=== PATIENT | male | born 1995 | race Caucasian/White ===

== ENCOUNTER 2018-12-27 13:38 | Emergency (ER) | payer OTHER ==
[2018-12-27] MEDS ORDERED: Bacitracin Oint 1 GM U/D Packet TOP ONE (15:28)
[2018-12-27] MEDS ORDERED: Lidocaine 1% 30 ML SDV INJECT ONE (15:28)
--- NOTE | 2018-12-27 16:48 | EDM.PDOC ---
Scribed by Theodora Slaughter 12/27/18 [id number] for Jennifer Corona NP ED HPI GENERAL MEDICAL PROBLEM - General Chief Complaint: Laceration Stated Complaint: W/C RIGHT HAD SOCIAL FINGER CUT Time Seen by Provider: 12/27/18 15:25 Source of Information: Reports: Patient, Long-Term Records, RN, RN Notes Reviewed History Limitations: Reports: No Limitations - History of Present Illness INITIAL COMMENTS - FREE TEXT/NARRATIVE: Patient presents to ER with complaint of laceration to right middle finger. This occurred about 1315 to 1330. 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 He states tetanus is up to date. Onset: Today Location: Reports: Upper Extremity, Right Quality: Reports: Ache Severity: Moderate Improves with: Reports: None Worsens with: Reports: None Associated Symptoms: Reports: No Other Symptoms - Related Data Allergies Allergy/AdvReac Type Severity Reaction Status Date / Time No Known Allergies Allergy Verified 12/27/18 14:32 Home Meds: Home Meds . [No Known Home Meds] 12/27/18 [History] Social & Family History - Tobacco Use Smoking Status *Q: Current Every Day Smoker Years of Tobacco use: 5 Packs/Tins Daily: 0.5 - Recreational Drug Use Recreational Drug Use: No Review of Systems - Review of Systems Review Of Systems: ROS reveals no pertinent complaints other than HPI. ED EXAM, GENERAL - Physical Exam Exam: See Below Exam Limited By: No Limitations General Appearance: Alert, WD/WN, No Apparent Distress Eye Exam: Bilateral Eye: EOMI, Normal Inspection, PERRL Ears: Normal External Exam, Normal Canal, Hearing Grossly Normal, Normal TMs Nose: Normal Inspection, Normal Mucosa, No Blood Throat/Mouth: Normal Inspection, Normal Lips, Normal Teeth, Normal Gums, Normal Oropharynx, Normal Voice, No Airway Compromise Head: Atraumatic, Normocephalic Neck: Normal Inspection, Supple, Non-Tender, Full Range of Motion Respiratory/Chest: No Respiratory Distress, Lungs Clear, Normal Breath Sounds, No Accessory Muscle Use, Chest Non-Tender Cardiovascular: Normal Peripheral Pulses, Regular Rate, Rhythm, No Edema, No Gallop, No JVD, No Murmur, No Rub GI/Abdominal: Normal Bowel Sounds, Soft, Non-Tender, No Organomegaly, No Distention, No Abnormal Bruit, No Mass (Male) Exam: Deferred Rectal (Males) Exam: Deferred Back Exam: Normal Inspection, Full Range of Motion, NT Extremities: Normal Inspection, Normal Range of Motion, Non-Tender, Normal Capillary Refill, No Pedal Edema Neurological: Alert, Oriented, CN II-XII Intact, Normal Cognition, Normal Gait, Normal Reflexes, No Motor/Sensory Deficits Psychiatric: Normal Affect, Normal Mood Skin Exam: Other (right middle finger laceration) Lymphatic: No Adenopathy ED TRAUMA EXTREMITY PROCEDURES - Laceration/Wound Repair Right Middle Digit - 3rd (Middle) Lac/Wound Length In cm: 2 Appearance: Subcutaneous Distal NVT: Neuro & Vascular Intact Anesthetic Type: Local Local Anesthesia - Lidocaine (Xylocaine): 1% Plain Local Anesthetic Volume: 2cc Skin Prep: Chlorhexidine (Hibiciens) Exploration/Debridement/Repair: Wound Explored, In a Bloodless Field, Minimal Debridement, No Foreign Material Found Closed With: Sutures Suture Size: 4-0 # of Sutures: 4 Suture Type: Interrupted Drain Placement: No Sterile Dressing Applied: Nurse Tetanus Status Addressed: Yes Complications: No Course - Vital Signs Last Recorded V/S: Last Vital Signs Temp 97.1 F 12/27/18 14:32 Pulse 58 L 12/27/18 14:32 Resp 14 12/27/18 14:32 BP 109/70 12/27/18 14:32 Pulse Ox 100 12/27/18 14:32 - Orders/Labs/Meds Meds: Medications Discontinued Medications Generic Name Dose Route Start Last Admin Trade Name Regina PRN Reason Stop Dose Admin Bacitracin 1 dose 12/27/18 15:28 12/27/18 15:41 Bacitracin Oint 1 Gm TOP 12/27/18 15:29 1 dose ONETIME ONE Administration Lidocaine HCl 30 ml 12/27/18 15:28 12/27/18 15:41 Xylocaine-Mpf 1% INJECT 12/27/18 15:29 30 ml ONETIME ONE Administration Departure - Departure Time of Disposition: 16:13 Disposition: Home, Self-Care 01 Condition: Good Clinical Impression: Laceration - Discharge Information *PRESCRIPTION DRUG MONITORING PROGRAM REVIEWED*: No *COPY OF PRESCRIPTION DRUG MONITORING REPORT IN PATIENT EFRAIN: No Instructions: Laceration Care, Adult, [id number], Stitches, [place], or Adhesive Wound Closure, [id number] Referrals: PCP,None [Primary Care Provider] - Forms: ED Department Discharge Additional Instructions: Monitor for infection Have sutures removed in 7-10 days Keep area clean and dry Follow up with your primary care facility I have read and agree with the documentation that has been completed regarding this visit. By signing this record, I attest that the documentation was completed in my physical presence and is an accurate record of the encounter.
== END 2018-12-27 16:32 | disposition home or self-care (01) ==
LOC: DL.ED 13:38
DX: S61.212A Laceration without foreign body of right middle finger without damage to nail, initial encounter (principal); F17.210 Nicotine dependence, cigarettes, uncomplicated; W31.89XA Contact with other specified machinery, initial encounter
CPT/HCPCS: 12001; 99282; J2001; 12002